=== PATIENT | male | born 1935 | race Caucasian/White ===

== ENCOUNTER 2020-08-13 11:38 | Inpatient (IN) ==
[2020-08-13] MEDS ORDERED: hydrALAZINE 20 MG/1 ML VIAL IV PRN (17:14)
[2020-08-13] MEDS ORDERED: DOCUSATE SODIUM 100 MG CAPSULE PO PRN (17:14)
[2020-08-13] MEDS ORDERED: GLUCAGON 1 MG VIAL IM PRN (17:14)
[2020-08-13] MEDS ORDERED: ACETAMINOPHEN 325 MG TABLET PO PRN (17:14)
[2020-08-13] MEDS ORDERED: ONDANSETRON 4 MG/2 ML VIAL IV PRN (17:14)
[2020-08-13] MEDS ORDERED: ALBUTEROL 2.5 MG/3 ML NEB RESP TX PRN (17:14)
[2020-08-13] MEDS ORDERED: DEXTROSE 50% 25 GM/50 ML VIAL IV PRN (17:14)
[2020-08-13 17:45] LABS: Basophils % 0.1 % (0.0-0.8); Hematocrit 26.3 VOL% (42.0-52.0); Hemoglobin 8.6 GM/DL (14.0-18.0); Immature Granulocytes % 0.3 %; Immature Granulocytes Absolute 0.12 #; Lymphocytes # 21.9 10*3/uL (1.4-4.0); Lymphocytes % 57.1 % (21.2-54.2); Mean Corpuscular HGB Conc 32.7 GM/DL (32-36); Mean Corpuscular Volume 89.5 FL (87-102); Mean Platelet Volume 11.1 FL (9.6-12.0); Monocytes % 41.2 % (1.7-12.7); NRBC # 0.06 10*3/uL; Neutrophils % 1.3 % (38.7-73.9); Red Blood Count 2.94 MC/CUMM (3.8-5.5); White Blood Count 38.3 T/CUMM (4-12)
[2020-08-13 17:51] LABS: Platelet Count 17 T/CUMM (130-400)
[2020-08-13] MEDS ORDERED: VANCOMYCIN INJ 1,000 MG in SODIUM CHLORIDE 0.9% 250 ML IV SCH ×2 (18:00→20:00)
[2020-08-13 18:02] LABS: Calcium 8.2 MG/DL (8.5-10.1); Potassium 5.1 MMOL/L (3.5-5.1)
[2020-08-13 18:06] LABS: Albumin 2.2 G/DL (3.4-5.0); Bilirubin,Direct 0.36 MG/DL (0.0-0.20); Bilirubin,Indirect 0.3 MG/DL (0.0-1.0); Bilirubin,Total 0.7 MG/DL (0.2-1.0); Total Protein 5.2 G/DL (6.4-8.2)
[2020-08-13] MEDS ORDERED: SODIUM CHLORIDE 0.9% 1,000 ML IV PRN ×2 (18:07→22:00)
[2020-08-13 18:08] LABS: PT Patient Result 11.6 SECS (10.5-12.0); Partial Thromboplastin Time 33.2 SECS (23.9-33.8)
[2020-08-13 19:02] LABS: Total Cells Counted 100
[2020-08-13 19:04] LABS: Smudge Cells Moderate
[2020-08-13 19:05] LABS: Atypical Lymphocytes 1+; Platelet Estimate Decreased; Reactive Lymphocytes 3+
[2020-08-13 19:06] LABS: Hypochromasia 1+; Microcytosis 2+; Ovalocytes Few; Polychromasia Slight
[2020-08-13 20:25] LABS: Band Neutrophils 1 % (0-10); Lymphocytes 88 % (20-55); Segmented Neutrophils 3 % (50-85)
[2020-08-13] MEDS: SODIUM CHLORIDE 0.9% 1,000 ML IV SCH (20:33)
[2020-08-13] MEDS: MEROPENEM 2,000 MG in SODIUM CHLORIDE 0.9% 100 ML IV SCH (21:35)
[2020-08-14 00:48] LABS: Bacteria,Urine Occasional /HPF (Few); Bilirubin,Urine Negative (Negative); Blood, Urine Negative (Negative); Glucose,Urine (UA) Negative (Negative); Granular Casts,Urine 7 /LPF (0-1); Ketones,Urine Negative (Negative); Mucus,Urine Occasional /LPF (Occasional); Nitrite,Urine Negative (Negative); Protein,Urine Negative; RBC,Urine 2 /HPF (0-4); Squamous Epithelial Cell,Urine Occasional /HPF (0-10); Urine Appearance Slightly Hazy (Clear); Urine Color Yellow (Yellow); Urine Specific Gravity 1.013 (1.001-1.035); Urine Urobilinogen < 2.0 EU/DL (0.2-1.0)
[2020-08-14 04:53] LABS: Basophils # 0.1 10*3/uL (0.0-0.2); Basophils % 0.2 % (0.0-0.8); Hematocrit 23.6 VOL% (42.0-52.0); Immature Granulocytes % 0.4 %; Immature Granulocytes Absolute 0.15 #; Lymphocytes # 17.2 10*3/uL (1.4-4.0); Mean Corpuscular HGB Conc 33.9 GM/DL (32-36); Mean Corpuscular Volume 88.4 FL (87-102); Mean Platelet Volume 9.7 FL (9.6-12.0); Monocytes % 52.6 % (1.7-12.7); NRBC # 0.05 10*3/uL; Neutrophils % 0.8 % (38.7-73.9); Red Blood Count 2.67 MC/CUMM (3.8-5.5); White Blood Count 37.3 T/CUMM (4-12)
[2020-08-14 05:03] LABS: Platelet Count 33 T/CUMM (130-400)
[2020-08-14 05:18] LABS: Calcium 8.2 MG/DL (8.5-10.1); Osmolality,Calculated 282.8 MOS/KG (273-304); Potassium 5.3 MMOL/L (3.5-5.1); Risk Ratio 4.35; Thyroid Stimulating Hormone 2.51 uIU/ml (0.358-3.74); VLDL Cholesterol 40.2 MG/DL
[2020-08-14] MEDS: MEROPENEM 2,000 MG in SODIUM CHLORIDE 0.9% 100 ML IV SCH (06:00)
[2020-08-14] MEDS: SODIUM CHLORIDE 0.9% 1,000 ML IV SCH (06:00)
[2020-08-14 06:44] LABS: Atypical Lymphocytes 1+; Lymphocytes 80 % (20-55); Reactive Lymphocytes 2+; Total Cells Counted 100
[2020-08-14 06:45] LABS: Platelet Estimate Decreased; Smudge Cells Few
[2020-08-14 06:46] LABS: Hypochromasia 1+; Microcytosis 1+
[2020-08-14] MEDS: PANTOPRAZOLE 40 MG TABLET PO SCH (08:55)
[2020-08-14] MEDS ORDERED: MAGNESIUM HYDROXIDE SUSP 30 ML UDCUP PO PRN (10:04)
[2020-08-14] MEDS ORDERED: FUROSEMIDE 40 MG/4 ML VIAL IV ONE (10:04)
[2020-08-14] MEDS ORDERED: SODIUM CHLORIDE 0.9% 1,000 ML IV PRN (10:05)
[2020-08-14] MEDS: allopurinoL 100 MG TABLET PO SCH (11:27)
[2020-08-14] MEDS: MEROPENEM 500 MG in SODIUM CHLORIDE 0.9% 100 ML IV SCH ×2 (13:34→20:30)
[2020-08-14] MEDS ORDERED: RITUXIMAB-ABBS 500 MG, RITUXIMAB-ABBS 300 MG in SODIUM CHLORIDE 0.9% 720 ML IV ONE (15:30)
[2020-08-14] MEDS ORDERED: ACETAMINOPHEN 325 MG TABLET PO ONE (15:46)
[2020-08-14] MEDS ORDERED: diphenhydrAMINE CAP 50 MG CAPSULE PO ONE (15:55)
[2020-08-14] MEDS ORDERED: methylPREDNISolone SOD SUC 125 MG/2 ML VIAL IV ONE (15:57)
[2020-08-14] MEDS ORDERED: methylPREDNISolone SOD SUC 40 MG/1 ML VIAL IV ONE (18:05)
[2020-08-14] MEDS ORDERED: FAMOTIDINE INJ 40 MG in SODIUM CHLORIDE 0.9% 100 ML IV ONE (18:05)
[2020-08-15] MEDS: MEROPENEM 500 MG in SODIUM CHLORIDE 0.9% 100 ML IV SCH ×5 (00:59→23:27)
[2020-08-15 06:02] LABS: Basophils % 1.3 % (0.0-0.8); Hematocrit 26.2 VOL% (42.0-52.0); Hemoglobin 8.9 GM/DL (14.0-18.0); Immature Granulocytes % 1.3 %; Immature Granulocytes Absolute 0.02 #; Lymphocytes # 1.1 10*3/uL (1.4-4.0); Lymphocytes % 70.8 % (21.2-54.2); Mean Corpuscular Volume 87.6 FL (87-102); Mean Platelet Volume 9.6 FL (9.6-12.0); Monocytes % 7.1 % (1.7-12.7); NRBC # 0.02 10*3/uL; Neutrophils % 19.5 % (38.7-73.9); Red Blood Count 2.99 MC/CUMM (3.8-5.5); Red Cell Distribution Width 14.8 % (9.3-17.3); White Blood Count 1.5 T/CUMM (4-12)
[2020-08-15 06:18] LABS: Platelet Count 16 T/CUMM (130-400)
[2020-08-15 06:21] LABS: Uric Acid 7.6 MG/DL (3.5-7.2)
[2020-08-15 06:33] LABS: Lymphocytes 68 % (20-55); Nucleated Red Blood Cells 1 (0-5); Platelet Estimate Decreased; Segmented Neutrophils 28 % (50-85); Total Cells Counted 100
[2020-08-15 06:34] LABS: Atypical Lymphocytes Few; Hypochromasia Slight
[2020-08-15] MEDS: SODIUM CHLORIDE 0.9% 1,000 ML IV SCH ×2 (07:34→12:21)
[2020-08-15] MEDS ORDERED: SODIUM CHLORIDE 0.9% 1,000 ML IV PRN (08:42)
[2020-08-15] MEDS: allopurinoL 100 MG TABLET PO SCH (08:45)
[2020-08-15] MEDS: PANTOPRAZOLE 40 MG TABLET PO SCH (08:45)
[2020-08-15 11:27] LABS: Albumin 2.1 G/DL (3.4-5.0); Bilirubin,Total 0.6 MG/DL (0.2-1.0); Calcium 7.7 MG/DL (8.5-10.1); Osmolality,Calculated 298.7 MOS/KG (273-304); Total Protein 5.1 G/DL (6.4-8.2)
[2020-08-15] MEDS ORDERED: RASBURICASE 7.5 MG in SODIUM CHLORIDE 0.9% 50 ML IV ONE (12:09)
[2020-08-15] MEDS ORDERED: INSULIN REGULAR IV SCH (12:30)
[2020-08-15] MEDS ORDERED: DEXTROSE IV SCH (12:30)
[2020-08-15] MEDS ORDERED: SODIUM BICARB IV SCH (12:30)
[2020-08-15] MEDS ORDERED: [UNRECOGNIZED DRUG - OTHER] IV SCH (12:30)
[2020-08-15] MEDS: SODIUM CHLORIDE 0.45% 1,000 ML IV SCH (19:16)
[2020-08-16] MEDS: SODIUM CHLORIDE 0.45% 1,000 ML IV SCH ×3 (02:12→18:04)
[2020-08-16] MEDS: MEROPENEM 500 MG in SODIUM CHLORIDE 0.9% 100 ML IV SCH ×3 (05:07→17:17)
[2020-08-16 06:09] LABS: Hematocrit 20.8 VOL% (42.0-52.0); Immature Granulocytes % 1.1 %; Immature Granulocytes Absolute 0.01 #; Lymphocytes # 0.6 10*3/uL (1.4-4.0); Lymphocytes % 66.7 % (21.2-54.2); Mean Corpuscular HGB Conc 33.7 GM/DL (32-36); Mean Corpuscular Volume 87.8 FL (87-102); Monocytes % 13.8 % (1.7-12.7); Neutrophils % 18.4 % (38.7-73.9); Red Blood Count 2.37 MC/CUMM (3.8-5.5); Red Cell Distribution Width 14.6 % (9.3-17.3)
[2020-08-16 06:15] LABS: Platelet Count 22 T/CUMM (130-400); White Blood Count 0.9 T/CUMM (4-12)
[2020-08-16 06:21] LABS: Uric Acid 4.2 MG/DL (3.5-7.2)
[2020-08-16 06:23] LABS: Albumin 2.1 G/DL (3.4-5.0); Bilirubin,Total 0.6 MG/DL (0.2-1.0); Calcium 7.4 MG/DL (8.5-10.1); Osmolality,Calculated 306.4 MOS/KG (273-304); Potassium 5.9 MMOL/L (3.5-5.1); Total Protein 4.5 G/DL (6.4-8.2)
[2020-08-16 06:58] LABS: Band Neutrophils 3 % (0-10); Lymphocytes 77 % (20-55); Segmented Neutrophils 13 % (50-85); Total Cells Counted 100
[2020-08-16 06:59] LABS: Hypochromasia 1+; Platelet Estimate Decreased
[2020-08-16 07:00] LABS: Atypical Lymphocytes Few
[2020-08-16] MEDS ORDERED: FUROSEMIDE 40 MG/4 ML VIAL ONE (07:29)
[2020-08-16] MEDS: allopurinoL 100 MG TABLET PO SCH (08:08)
[2020-08-16] MEDS: PANTOPRAZOLE 40 MG TABLET PO SCH (08:08)
[2020-08-16] MEDS: SODIUM POLYSTYRENE SULFATE 15 GM/60 ML BOTTLE PO SCH ×3 (09:22→20:42)
[2020-08-17] MEDS: MELATONIN 3 MG TABLET PO PRN (00:17)
[2020-08-17] MEDS: MEROPENEM 500 MG in SODIUM CHLORIDE 0.9% 100 ML IV SCH ×2 (00:17→06:00)
[2020-08-17] MEDS: TEMAZEPAM 15 MG CAPSULE PO PRN ×2 (01:35→20:58)
[2020-08-17] MEDS: SODIUM POLYSTYRENE SULFATE 15 GM/60 ML BOTTLE PO SCH (04:08)
[2020-08-17 06:57] LABS: Hematocrit 25.9 VOL% (42.0-52.0); Hemoglobin 8.4 GM/DL (14.0-18.0); Immature Granulocytes % 1.4 %; Immature Granulocytes Absolute 0.01 #; Lymphocytes # 0.5 10*3/uL (1.4-4.0); Lymphocytes % 73.9 % (21.2-54.2); Mean Corpuscular HGB Conc 32.4 GM/DL (32-36); Mean Corpuscular Volume 89.6 FL (87-102); Mean Platelet Volume 10.3 FL (9.6-12.0); Neutrophils % 11.7 % (38.7-73.9); Red Blood Count 2.89 MC/CUMM (3.8-5.5); Red Cell Distribution Width 14.8 % (9.3-17.3)
[2020-08-17 07:11] LABS: Uric Acid 4.2 MG/DL (3.5-7.2)
[2020-08-17 07:16] LABS: Bilirubin,Total 0.9 MG/DL (0.2-1.0); Calcium 6.7 MG/DL (8.5-10.1); Osmolality,Calculated 305.1 MOS/KG (273-304); Potassium 4.8 MMOL/L (3.5-5.1); Total Protein 4.3 G/DL (6.4-8.2)
[2020-08-17 07:44] LABS: Platelet Count 17 T/CUMM (130-400); White Blood Count 0.7 T/CUMM (4-12)
[2020-08-17 08:01] LABS: Atypical Lymphocytes Few; Eosinophils 1 % (0-10); Hypochromasia 1+; Lymphocytes 79 % (20-55); Microcytosis 1+; Platelet Estimate Decreased; Segmented Neutrophils 14 % (50-85); Total Cells Counted 100
[2020-08-17] MEDS ORDERED: SODIUM CHLORIDE 0.9% 1,000 ML IV PRN (08:28)
[2020-08-17] MEDS: allopurinoL 100 MG TABLET PO SCH (08:44)
[2020-08-17] MEDS: PANTOPRAZOLE 40 MG TABLET PO SCH (08:44)
[2020-08-17] MEDS: SODIUM CHLORIDE 0.45% 1,000 ML IV SCH ×3 (08:45→22:45)
[2020-08-17] MEDS: FILGRASTIM-SNDZ 480 MCG/0.8 ML SYRINGE SUBCUT SCH (11:00)
[2020-08-17] MEDS ORDERED: ZALEPLON 5 MG CAPSULE PO PRN (14:19)
[2020-08-18] MEDS: MELATONIN 3 MG TABLET PO PRN (00:11)
[2020-08-18 06:59] LABS: Hematocrit 28.4 VOL% (42.0-52.0); Hemoglobin 9.4 GM/DL (14.0-18.0); Immature Granulocytes Absolute 0.02 #; Lymphocytes # 0.4 10*3/uL (1.4-4.0); Lymphocytes % 42.2 % (21.2-54.2); Mean Corpuscular HGB Conc 33.1 GM/DL (32-36); Mean Corpuscular Volume 87.4 FL (87-102); Mean Platelet Volume 9.7 FL (9.6-12.0); Monocytes % 15.7 % (1.7-12.7); Neutrophils % 39.1 % (38.7-73.9); Red Blood Count 3.25 MC/CUMM (3.8-5.5); Red Cell Distribution Width 14.7 % (9.3-17.3)
[2020-08-18 07:01] LABS: Platelet Count 13 T/CUMM (130-400)
[2020-08-18 07:23] LABS: Atypical Lymphocytes Few; Eosinophils 3 % (0-10); Hypochromasia 1+; Lymphocytes 39 % (20-55); Microcytosis 1+; Nucleated Red Blood Cells 1 (0-5); Platelet Estimate Decreased; Segmented Neutrophils 42 % (50-85); Total Cells Counted 100
[2020-08-18 07:26] LABS: Albumin 2.3 G/DL (3.4-5.0); Bilirubin,Total 0.8 MG/DL (0.2-1.0); Calcium 7.3 MG/DL (8.5-10.1); Osmolality,Calculated 297.3 MOS/KG (273-304); Potassium 5.1 MMOL/L (3.5-5.1); Total Protein 4.6 G/DL (6.4-8.2)
[2020-08-18] MEDS: PANTOPRAZOLE 40 MG TABLET PO SCH (09:59)
[2020-08-18] MEDS: CITALOPRAM 20 MG TABLET PO SCH (10:00)
[2020-08-18] MEDS: allopurinoL 100 MG TABLET PO SCH (10:00)
[2020-08-18] MEDS: FILGRASTIM-SNDZ 480 MCG/0.8 ML SYRINGE SUBCUT SCH (10:02)
[2020-08-18] MEDS: ALBUTEROL 2.5 MG/3 ML NEB RESP TX SCH ×3 (10:45→19:22)
[2020-08-18] MEDS ORDERED: MYLANTA/LIDO VISC 2:1 300 ML BOTTLE SWISH/SWAL PRN (15:04)
[2020-08-18] MEDS ORDERED: diphenhydrAMINE CAP 25 MG CAPSULE PO PRN (15:04)
[2020-08-18] MEDS ORDERED: MAGNESIUM HYDROXIDE SUSP 30 ML UDCUP PO PRN (15:04)
[2020-08-18] MEDS ORDERED: LACTULOSE 20 GM/30 ML UDCUP PO PRN (15:04)
[2020-08-18] MEDS ORDERED: guaiFENesin 200 MG/10 ML UDCUP PO PRN (15:04)
[2020-08-18] MEDS ORDERED: MYLANTA/LIDO VISC 2:1 300 ML BOTTLE SWISH/SPIT PRN (15:04)
[2020-08-18] MEDS ORDERED: ONDANSETRON 4 MG/2 ML VIAL IV PRN (15:04)
[2020-08-18] MEDS ORDERED: ALUMINUM/MAGNES/SIMETH MAX STR 30 ML UDCUP PO PRN (15:04)
[2020-08-18] MEDS ORDERED: PROMETHAZINE INJ 25 MG in SODIUM CHLORIDE 0.9% 50 ML IV PRN (15:04)
[2020-08-18] MEDS ORDERED: LOPERAMIDE 2 MG CAPSULE PO PRN ×2 (15:04)
[2020-08-18] MEDS: ALPRAZolam 0.25 MG TABLET PO PRN ×2 (16:06→21:15)
[2020-08-18] MEDS: TEMAZEPAM 15 MG CAPSULE PO SCH (21:15)
[2020-08-18] MEDS: SODIUM CHLORIDE 0.45% 1,000 ML IV SCH (22:21)
[2020-08-19] MEDS: ALBUTEROL 2.5 MG/3 ML NEB RESP TX SCH ×4 (00:35→19:55)
[2020-08-19 06:22] LABS: Eosinophils % 0.8 % (0.00-10.9); Hematocrit 25.8 VOL% (42.0-52.0); Hemoglobin 8.9 GM/DL (14.0-18.0); Immature Granulocytes % 26.7 %; Immature Granulocytes Absolute 0.35 #; Lymphocytes # 0.4 10*3/uL (1.4-4.0); Lymphocytes % 28.2 % (21.2-54.2); Mean Corpuscular HGB Conc 34.5 GM/DL (32-36); Mean Platelet Volume 9.9 FL (9.6-12.0); Neutrophils % 28.3 % (38.7-73.9); Red Cell Distribution Width 14.6 % (9.3-17.3); White Blood Count 1.3 T/CUMM (4-12)
[2020-08-19 06:24] LABS: Platelet Count 18 T/CUMM (130-400)
[2020-08-19 06:43] LABS: Atypical Lymphocytes Few; Band Neutrophils 3 % (0-10); Hypochromasia 1+; Lymphocytes 33 % (20-55); Microcytosis 1+; Platelet Estimate Decreased; Segmented Neutrophils 54 % (50-85); Total Cells Counted 100
[2020-08-19 06:53] LABS: Albumin 2.3 G/DL (3.4-5.0); Bilirubin,Total 1.7 MG/DL (0.2-1.0); Calcium 7.3 MG/DL (8.5-10.1); Osmolality,Calculated 295.1 MOS/KG (273-304); Potassium 5.6 MMOL/L (3.5-5.1); Total Protein 4.6 G/DL (6.4-8.2)
[2020-08-19] MEDS: TAMSULOSIN 0.4 MG CAPSULE PO SCH (08:09)
[2020-08-19] MEDS: CHOLECALCIFEROL 1,000 UNIT TABLET PO SCH (08:09)
[2020-08-19] MEDS: lisinopriL 20 MG TABLET PO SCH ×2 (08:09→20:50)
[2020-08-19] MEDS: FELODIPINE 5 MG TABLET PO SCH ×2 (08:09→20:49)
[2020-08-19] MEDS: LORATADINE 10 MG TABLET PO SCH (08:10)
[2020-08-19] MEDS: CITALOPRAM 20 MG TABLET PO SCH (08:10)
[2020-08-19] MEDS: allopurinoL 100 MG TABLET PO SCH (08:10)
[2020-08-19] MEDS ORDERED: SODIUM POLYSTYRENE SULFATE 15 GM/60 ML BOTTLE PO ONE (08:11)
[2020-08-19] MEDS: BRIMONIDINE 0.2% OPH SOLN 5 ML BOTTLE BOTH EYES SCH ×2 (08:12→20:49)
[2020-08-19] MEDS: FILGRASTIM-SNDZ 480 MCG/0.8 ML SYRINGE SUBCUT SCH (08:12)
[2020-08-19] MEDS: SIMVASTATIN 40 MG TABLET PO SCH (20:49)
[2020-08-19] MEDS: TEMAZEPAM 15 MG CAPSULE PO SCH (20:50)
[2020-08-20] MEDS: MELATONIN 3 MG TABLET PO PRN (02:42)
[2020-08-20] MEDS: ALBUTEROL 2.5 MG/3 ML NEB RESP TX SCH ×4 (04:30→19:56)
[2020-08-20 06:48] LABS: Eosinophils % 0.6 % (0.00-10.9); Hematocrit 26.6 VOL% (42.0-52.0); Hemoglobin 8.5 GM/DL (14.0-18.0); Immature Granulocytes % 2.6 %; Immature Granulocytes Absolute 0.09 #; Lymphocytes # 0.4 10*3/uL (1.4-4.0); Lymphocytes % 12.6 % (21.2-54.2); Mean Corpuscular Volume 89.9 FL (87-102); Monocytes % 13.7 % (1.7-12.7); Neutrophils % 70.5 % (38.7-73.9); Red Blood Count 2.96 MC/CUMM (3.8-5.5); Red Cell Distribution Width 14.6 % (9.3-17.3); White Blood Count 3.4 T/CUMM (4-12)
[2020-08-20 06:51] LABS: Platelet Count 24 T/CUMM (130-400)
[2020-08-20 07:04] LABS: Albumin 2.2 G/DL (3.4-5.0); Bilirubin,Total 1.2 MG/DL (0.2-1.0); Calcium 7.5 MG/DL (8.5-10.1); Osmolality,Calculated 291.1 MOS/KG (273-304); Potassium 5.3 MMOL/L (3.5-5.1); Total Protein 4.7 G/DL (6.4-8.2)
[2020-08-20 07:12] LABS: Band Neutrophils 2 % (0-10); Eosinophils 3 % (0-10); Hypochromasia 1+; Lymphocytes 16 % (20-55); Microcytosis 1+; Nucleated Red Blood Cells 1 (0-5); Ovalocytes Slight; Platelet Estimate Decreased; Segmented Neutrophils 60 % (50-85); Total Cells Counted 100
[2020-08-20 07:13] LABS: Atypical Lymphocytes Few
[2020-08-20] MEDS ORDERED: methylPREDNISolone SOD SUC 125 MG/2 ML VIAL IV ONE (08:00)
[2020-08-20] MEDS ORDERED: ACETAMINOPHEN 325 MG TABLET PO ONE (08:00)
[2020-08-20] MEDS ORDERED: diphenhydrAMINE CAP 50 MG CAPSULE PO ONE (08:00)
[2020-08-20] MEDS ORDERED: RITUXIMAB-ABBS 500 MG, RITUXIMAB-ABBS 300 MG in SODIUM CHLORIDE 0.9% 720 ML IV ONE (08:30)
[2020-08-20] MEDS: FILGRASTIM-SNDZ 480 MCG/0.8 ML SYRINGE SUBCUT SCH (08:42)
[2020-08-20] MEDS: FELODIPINE 5 MG TABLET PO SCH ×2 (08:43→21:49)
[2020-08-20] MEDS: CITALOPRAM 20 MG TABLET PO SCH (08:43)
[2020-08-20] MEDS: CHOLECALCIFEROL 1,000 UNIT TABLET PO SCH (08:43)
[2020-08-20] MEDS: LORATADINE 10 MG TABLET PO SCH (08:44)
[2020-08-20] MEDS: TAMSULOSIN 0.4 MG CAPSULE PO SCH (08:44)
[2020-08-20] MEDS: lisinopriL 20 MG TABLET PO SCH ×2 (08:44→21:49)
[2020-08-20] MEDS: BRIMONIDINE 0.2% OPH SOLN 5 ML BOTTLE BOTH EYES SCH ×2 (08:48→21:50)
[2020-08-20] MEDS: allopurinoL 100 MG TABLET PO SCH (08:50)
[2020-08-20] MEDS: SODIUM ZIRCONIUM CYCLOSILICATE 10 GM PACK PO SCH (16:10)
[2020-08-20] MEDS: TEMAZEPAM 15 MG CAPSULE PO SCH (21:49)
[2020-08-20] MEDS: SIMVASTATIN 40 MG TABLET PO SCH (21:50)
[2020-08-21] MEDS: ALBUTEROL 2.5 MG/3 ML NEB RESP TX SCH ×2 (04:22→07:00)
[2020-08-21 05:49] LABS: Basophils % 0.2 % (0.0-0.8); Hematocrit 23.8 VOL% (42.0-52.0); Hemoglobin 7.8 GM/DL (14.0-18.0); Immature Granulocytes Absolute 0.92 #; Lymphocytes # 0.6 10*3/uL (1.4-4.0); Lymphocytes % 9.8 % (21.2-54.2); Mean Corpuscular HGB Conc 32.8 GM/DL (32-36); Mean Corpuscular Volume 89.8 FL (87-102); Mean Platelet Volume 10.4 FL (9.6-12.0); Monocytes % 12.4 % (1.7-12.7); Neutrophils % 62.6 % (38.7-73.9); Red Blood Count 2.65 MC/CUMM (3.8-5.5); Red Cell Distribution Width 14.6 % (9.3-17.3); White Blood Count 6.1 T/CUMM (4-12)
[2020-08-21 05:54] LABS: Platelet Count 31 T/CUMM (130-400)
[2020-08-21 06:26] LABS: Albumin 2.2 G/DL (3.4-5.0); Bilirubin,Total 0.9 MG/DL (0.2-1.0); Calcium 7.3 MG/DL (8.5-10.1); Potassium 5.9 MMOL/L (3.5-5.1); Total Protein 4.8 G/DL (6.4-8.2)
[2020-08-21 07:11] LABS: Band Neutrophils 4 % (0-10); Hypochromasia 1+; Lymphocytes 12 % (20-55); Segmented Neutrophils 72 % (50-85); Total Cells Counted 100
[2020-08-21 07:12] LABS: Microcytosis 1+; Platelet Estimate Decreased
[2020-08-21 07:13] LABS: Atypical Lymphocytes Few
[2020-08-21] MEDS: TAMSULOSIN 0.4 MG CAPSULE PO SCH (08:11)
[2020-08-21] MEDS: CHOLECALCIFEROL 1,000 UNIT TABLET PO SCH (08:11)
[2020-08-21] MEDS: FELODIPINE 5 MG TABLET PO SCH ×2 (08:11→21:01)
[2020-08-21] MEDS: FILGRASTIM-SNDZ 480 MCG/0.8 ML SYRINGE SUBCUT SCH (08:11)
[2020-08-21] MEDS: CITALOPRAM 20 MG TABLET PO SCH (08:11)
[2020-08-21] MEDS: LORATADINE 10 MG TABLET PO SCH (08:11)
[2020-08-21] MEDS: lisinopriL 20 MG TABLET PO SCH ×2 (08:11→21:01)
[2020-08-21] MEDS: allopurinoL 100 MG TABLET PO SCH (08:11)
[2020-08-21] MEDS: BRIMONIDINE 0.2% OPH SOLN 5 ML BOTTLE BOTH EYES SCH ×2 (08:12→21:05)
[2020-08-21] MEDS: SODIUM ZIRCONIUM CYCLOSILICATE 10 GM PACK PO SCH ×4 (08:12→21:01)
[2020-08-21] MEDS ORDERED: SODIUM CHLORIDE 0.9% 1,000 ML IV PRN ×2 (08:46→09:53)
[2020-08-21] MEDS ORDERED: ALBUTEROL 2.5 MG/3 ML NEB RESP TX PRN (11:24)
[2020-08-21] MEDS: ALPRAZolam 0.25 MG TABLET PO PRN ×2 (16:04→21:01)
[2020-08-21 16:23] LABS: Hematocrit 27.9 VOL% (42.0-52.0)
[2020-08-21] MEDS: TEMAZEPAM 15 MG CAPSULE PO SCH (21:01)
[2020-08-21] MEDS: SIMVASTATIN 40 MG TABLET PO SCH (21:01)
[2020-08-22] MEDS: MELATONIN 3 MG TABLET PO PRN (00:26)
[2020-08-22 05:22] LABS: Basophils # 0.1 10*3/uL (0.0-0.2); Basophils % 0.5 % (0.0-0.8); Eosinophils # 0.1 10*3/uL (0.0-0.87); Eosinophils % 0.5 % (0.00-10.9); Hematocrit 28.9 VOL% (42.0-52.0); Hemoglobin 9.6 GM/DL (14.0-18.0); Immature Granulocytes % 7.6 %; Immature Granulocytes Absolute 0.84 #; Lymphocytes # 0.5 10*3/uL (1.4-4.0); Lymphocytes % 4.4 % (21.2-54.2); Mean Corpuscular HGB Conc 33.2 GM/DL (32-36); Mean Corpuscular Volume 89.5 FL (87-102); Mean Platelet Volume 10.6 FL (9.6-12.0); Monocytes % 11.6 % (1.7-12.7); Neutrophils % 75.4 % (38.7-73.9); Red Blood Count 3.23 MC/CUMM (3.8-5.5); Red Cell Distribution Width 14.8 % (9.3-17.3); White Blood Count 11.1 T/CUMM (4-12)
[2020-08-22 05:42] LABS: Platelet Count 34 T/CUMM (130-400)
[2020-08-22 05:49] LABS: Albumin 2.4 G/DL (3.4-5.0); Bilirubin,Total 1.1 MG/DL (0.2-1.0); Osmolality,Calculated 288.3 MOS/KG (273-304); Total Protein 5.2 G/DL (6.4-8.2)
[2020-08-22 05:55] LABS: Potassium 6.8 MMOL/L (3.5-5.1)
[2020-08-22] MEDS ORDERED: INSULIN REGULAR 10 UNIT, CALCIUM GLUCONATE 1,000 MG in DEXTROSE 10% 250 ML IV ONE ×2 (06:15→07:46)
[2020-08-22] MEDS ORDERED: SODIUM POLYSTYRENE SULFATE 15 GM/60 ML BOTTLE PO ONE (06:16)
[2020-08-22 06:45] LABS: Band Neutrophils 27 % (0-10); Lymphocytes 7 % (20-55); Metamyelocytes 2 %; Segmented Neutrophils 55 % (50-85); Total Cells Counted 100
[2020-08-22 06:46] LABS: Anisocytosis 2+; Platelet Estimate Decreased
[2020-08-22 06:57] LABS: Macrocytosis Slight
[2020-08-22] MEDS ORDERED: FUROSEMIDE 40 MG/4 ML VIAL IV ONE (09:07)
[2020-08-22] MEDS: POLYETHYLENE GLYCOL POWDER 17 GM PACK PO SCH ×2 (10:01→20:29)
[2020-08-22] MEDS: FELODIPINE 5 MG TABLET PO SCH ×2 (10:03→20:29)
[2020-08-22] MEDS: TAMSULOSIN 0.4 MG CAPSULE PO SCH (10:03)
[2020-08-22] MEDS: CHOLECALCIFEROL 1,000 UNIT TABLET PO SCH (10:03)
[2020-08-22] MEDS: allopurinoL 100 MG TABLET PO SCH (10:03)
[2020-08-22] MEDS: CITALOPRAM 20 MG TABLET PO SCH (10:03)
[2020-08-22] MEDS: LORATADINE 10 MG TABLET PO SCH (10:03)
[2020-08-22] MEDS: SODIUM ZIRCONIUM CYCLOSILICATE 10 GM PACK PO SCH ×3 (10:27→20:29)
[2020-08-22] MEDS: BRIMONIDINE 0.2% OPH SOLN 5 ML BOTTLE BOTH EYES SCH ×2 (10:27→20:27)
[2020-08-22] MEDS: lisinopriL 20 MG TABLET PO SCH (10:28)
[2020-08-22] MEDS ORDERED: MORPHINE 2 MG/1 ML SYRINGE IV PRN (10:36)
[2020-08-22] MEDS: hydrALAZINE 25 MG TABLET PO SCH ×2 (11:48→20:29)
[2020-08-22] MEDS: LUBIPROSTONE 24 MCG CAPSULE PO SCH ×2 (11:48→20:28)
[2020-08-22 15:38] LABS: Calcium 8.2 MG/DL (8.5-10.1); Osmolality,Calculated 284.5 MOS/KG (273-304); Potassium 5.8 MMOL/L (3.5-5.1)
[2020-08-22] MEDS: DOCUSATE SODIUM 100 MG CAPSULE PO SCH (20:29)
[2020-08-22] MEDS: TEMAZEPAM 15 MG CAPSULE PO SCH (20:29)
[2020-08-22] MEDS: SIMVASTATIN 40 MG TABLET PO SCH (20:30)
[2020-08-23 04:31] LABS: Basophils % 0.2 % (0.0-0.8); Eosinophils % 0.3 % (0.00-10.9); Hematocrit 27.4 VOL% (42.0-52.0); Immature Granulocytes % 5.1 %; Immature Granulocytes Absolute 0.47 #; Lymphocytes # 0.7 10*3/uL (1.4-4.0); Lymphocytes % 7.4 % (21.2-54.2); Mean Corpuscular HGB Conc 32.8 GM/DL (32-36); Mean Corpuscular Volume 89.3 FL (87-102); Mean Platelet Volume 10.4 FL (9.6-12.0); Monocytes % 9.5 % (1.7-12.7); Neutrophils % 77.5 % (38.7-73.9); Platelet Count 45 T/CUMM (130-400); Red Blood Count 3.07 MC/CUMM (3.8-5.5); White Blood Count 9.2 T/CUMM (4-12)
[2020-08-23 04:50] LABS: Hypochromasia 1+; Lymphocytes 6 % (20-55); Microcytosis 1+; Platelet Estimate Decreased; Segmented Neutrophils 83 % (50-85); Total Cells Counted 100
[2020-08-23 07:25] LABS: Osmolality,Calculated 284.4 MOS/KG (273-304); Potassium 5.4 MMOL/L (3.5-5.1)
[2020-08-23] MEDS: POLYETHYLENE GLYCOL POWDER 17 GM PACK PO SCH ×2 (09:47→20:32)
[2020-08-23] MEDS: SODIUM ZIRCONIUM CYCLOSILICATE 10 GM PACK PO SCH ×3 (09:48→20:32)
[2020-08-23] MEDS: LUBIPROSTONE 24 MCG CAPSULE PO SCH ×2 (09:49→20:31)
[2020-08-23] MEDS: CHOLECALCIFEROL 1,000 UNIT TABLET PO SCH (09:49)
[2020-08-23] MEDS: FELODIPINE 5 MG TABLET PO SCH ×2 (09:49→20:31)
[2020-08-23] MEDS: TAMSULOSIN 0.4 MG CAPSULE PO SCH (09:49)
[2020-08-23] MEDS: CITALOPRAM 20 MG TABLET PO SCH (09:49)
[2020-08-23] MEDS: allopurinoL 100 MG TABLET PO SCH (09:49)
[2020-08-23] MEDS: LORATADINE 10 MG TABLET PO SCH (09:49)
[2020-08-23] MEDS: hydrALAZINE 25 MG TABLET PO SCH ×2 (09:49→20:31)
[2020-08-23] MEDS: BRIMONIDINE 0.2% OPH SOLN 5 ML BOTTLE BOTH EYES SCH ×2 (09:55→20:32)
[2020-08-23] MEDS: DOCUSATE SODIUM 100 MG CAPSULE PO SCH ×2 (09:55→20:32)
[2020-08-23] MEDS ORDERED: HYDROmorphone 2 MG/1 ML VIAL IV PRN (14:48)
[2020-08-23] MEDS: TEMAZEPAM 15 MG CAPSULE PO SCH (20:31)
[2020-08-23] MEDS: SIMVASTATIN 40 MG TABLET PO SCH (20:31)
[2020-08-24 04:47] LABS: Basophils % 0.2 % (0.0-0.8); Eosinophils % 0.5 % (0.00-10.9); Hematocrit 27.9 VOL% (42.0-52.0); Hemoglobin 8.8 GM/DL (14.0-18.0); Immature Granulocytes Absolute 0.31 #; Lymphocytes # 0.5 10*3/uL (1.4-4.0); Lymphocytes % 8.3 % (21.2-54.2); Mean Corpuscular HGB Conc 31.5 GM/DL (32-36); Mean Corpuscular Volume 92.1 FL (87-102); Mean Platelet Volume 12.5 FL (9.6-12.0); Monocytes % 10.4 % (1.7-12.7); Neutrophils % 75.6 % (38.7-73.9); Platelet Count 43 T/CUMM (130-400); Red Blood Count 3.03 MC/CUMM (3.8-5.5); Red Cell Distribution Width 15.6 % (9.3-17.3); White Blood Count 6.2 T/CUMM (4-12)
[2020-08-24 05:22] LABS: Calcium 8.1 MG/DL (8.5-10.1); Osmolality,Calculated 279.7 MOS/KG (273-304); Potassium 5.4 MMOL/L (3.5-5.1)
[2020-08-24 05:25] LABS: Band Neutrophils 1 % (0-10); Hypochromasia 1+; Lymphocytes 8 % (20-55); Microcytosis 1+; Platelet Estimate Decreased; Segmented Neutrophils 84 % (50-85); Total Cells Counted 100
[2020-08-24] MEDS ORDERED: LINACLOTIDE 145 MCG CAPSULE PO SCH (07:30)
[2020-08-24 08:01] VITALS: BP 159/66
[2020-08-24] MEDS ORDERED: FUROSEMIDE 20 MG TABLET PO SCH (09:00)
[2020-08-24] MEDS: TAMSULOSIN 0.4 MG CAPSULE PO SCH (09:52)
[2020-08-24] MEDS: CHOLECALCIFEROL 1,000 UNIT TABLET PO SCH (09:52)
[2020-08-24] MEDS: SODIUM ZIRCONIUM CYCLOSILICATE 10 GM PACK PO SCH (09:52)
[2020-08-24] MEDS: FELODIPINE 5 MG TABLET PO SCH (09:52)
[2020-08-24] MEDS: LUBIPROSTONE 24 MCG CAPSULE PO SCH (09:52)
[2020-08-24] MEDS: LORATADINE 10 MG TABLET PO SCH (09:53)
[2020-08-24] MEDS: allopurinoL 100 MG TABLET PO SCH (09:53)
[2020-08-24] MEDS: hydrALAZINE 25 MG TABLET PO SCH (09:53)
== END 2020-08-24 14:20 | disposition home health service (06) | DRG 840 ==
LOC: SUATTDRO 16:52 → N.4E 16:52
PROVIDERS: ADMIT Internal Medicine; ATTEND Hospitalist